=== PATIENT | female | born 1965 | race Two or more races ===

== ENCOUNTER 2022-01-01 09:15 | Emergency (ER) | payer OTHER, BC ==
[2022-01-01 09:25] VITALS: BP 144/87; PULSE 69; TEMP 97.2; BMI 33.3
[2022-01-01] MEDS ORDERED: IBUPROFEN 600 MG TABLET (FP) PO ONE ×2 (09:54→10:00)
== END 2022-01-01 10:10 | disposition home or self-care (01) ==
LOC: JERFT 09:15 → JER 09:15 → JERFT 10:10
DX: M67.431 Ganglion, right wrist (principal)
CPT/HCPCS: 99283-25

== ENCOUNTER 2022-11-10 09:55 | Emergency (ER) | payer BC, OTHER ==
[2022-11-10 10:06] VITALS: BP 145/81; PULSE 78; RESP 18; TEMP 98.1; BMI 25.7
== END 2022-11-10 10:39 | disposition home or self-care (01) ==
LOC: JERFT 09:55 → JER 09:55 → JERFT 10:39
PROC: 0HQGXZZ Repair Left Hand Skin, External Approach (ICD-10-PCS; principal; 2022-11-10)
DX: S61.412A Laceration without foreign body of left hand, initial encounter (principal); W27.4XXA Contact with kitchen utensil, initial encounter; Y93.G1 Activity, food preparation and clean up
CPT/HCPCS: 99282-25

== ENCOUNTER 2022-11-17 08:36 | Emergency (ER) | payer BC ==
[2022-11-17 08:44] VITALS: BP 162/94; PULSE 89; RESP 14; TEMP 98.4; BMI 25.8
== END 2022-11-17 09:29 | disposition home or self-care (01) ==
LOC: JER 08:36
DX: Z48.02 Encounter for removal of sutures (principal)
CPT/HCPCS: 99281-25